=== PATIENT | male | born 1975 | race Caucasian/White ===

== ENCOUNTER 2023-10-01 17:38 | Emergency (ER) | payer OTHER, BC ==
[2023-10-02 02:11] VITALS: BP 145/104
[2023-10-02 02:13] VITALS: PULSE 97
== END 2023-10-01 19:27 | disposition home or self-care (01) ==
LOC: JD.ED 17:38
DX: R07.81 Pleurodynia (principal)
CPT/HCPCS: 71101-26-RT; 71101-RT; 99282; 99283

== ENCOUNTER 2023-10-14 09:17 | Emergency (ER) | payer OTHER, BC ==
[2023-10-14] MEDS ORDERED: Succinylcholine 200 MG/10 ML MDV IVPUSH ONE (09:27)
[2023-10-14] MEDS ORDERED: Etomidate 2 MG/ML 20 ML SDV IVPUSH ONE (09:27)
[2023-10-14 09:31] LABS: HEMATOCRIT 44.7 % (42.0-52.0); HEMOGLOBIN 15.6 gm/dl (14.0-18.0); MEAN CORPUSCULAR HEMOGLOBIN 30.3 pg (28.0-32.0); MEAN CORPUSCULAR HGB CONC 34.9 g/dl (32.0-36.0); MEAN CORPUSCULAR VOLUME 86.8 fl (83.0-99.0); MEAN PLATELET VOLUME 10.2 fl (9.4-12.4); PLATELET COUNT,PLT 168 K/mm3 (150-400); RED BLOOD CELL COUNT 5.15 M/mm3 (4.52-5.90); WHITE BLOOD CELL COUNT,WBC 7.38 K/mm3 (3.9-11.3)
[2023-10-14] MEDS ORDERED: Diphtheria,Pertussis(Acell),Tetanus Vaccine 0.5 ML Syringe IM ONE (09:36)
[2023-10-14] MEDS ORDERED: Sodium Chloride 0.9% 10 ML Syringe FLUSH ONE (09:44)
[2023-10-14] MEDS ORDERED: Iopamidol 612 MG/ML 100 ML Bottle IVPUSH ONE (09:44)
[2023-10-14] MEDS ORDERED: Iopamidol 612 MG/ML 30 ML SDV IVPUSH ONE (09:44)
[2023-10-14 09:45] LABS: INR 0.96; PROTHROMBIN TIME 10.3 SECONDS (9.7-12.0)
[2023-10-14] MEDS ORDERED: Sodium Chloride 0.9% 100 ML IV SCH (09:45)
[2023-10-14 09:46] LABS: PTT,PARTIAL THROMBOPLSTIN TIME 24.6 SECONDS (21.7-31.4)
[2023-10-14] MEDS: propofoL 100 ML IV SCH ×3 (09:47→14:17)
[2023-10-14] MEDS ORDERED: Sodium Chloride 0.9% 1,000 ML IV ONE (09:49)
[2023-10-14 09:55] LABS: APPEARANCE,URINE CLEAR (Clear); BILIRUBIN,URINE NEGATIVE (Negative); COLOR,URINE YELLOW (Yellow); GLUCOSE,URINE NEGATIVE (Negative); KETONES,URINE NEGATIVE (Negative); LEUKOCYTE ESTERASE,URINE NEGATIVE (Negative); NITRITE,URINE NEGATIVE (Negative); OCCULT BLOOD,URINE TRACE-INTACT (Negative); PH,URINE 5.5 (5.0-8.0); PROTEIN,URINE NEGATIVE (Negative); UROBILINOGEN,URINE 0.2 (0.2-1.0)
[2023-10-14 09:58] LABS: A/G RATIO 1.2 (1-2); ALANINE AMINOTRANSFERASE,ALT 64 U/L (16-63); ALBUMIN 3.9 g/dl (3.4-5.0); ALKALINE PHOSPHATASE 121 U/L (46-116); AMYLASE 47 U/L (25-115); ANION GAP 15.5 (5-15); ASPARTATE AMNIOTRANSFERASE,AST 30 U/L (15-37); BILIRUBIN TOTAL 0.4 mg/dL (0.2-1.0); BLOOD UREA NITROGEN,BUN 10 mg/dL (7-18); BUN/CREATININE RATIO 8.3 (14-18); CALCIUM 8.6 mg/dL (8.5-10.1); CARBON DIOXIDE,CO2 23 mEq/L (21-32); CHLORIDE,CL 103 mEq/L (98-107); CREATININE 1.2 mg/dL (0.7-1.3); ESTIMATED GFR 75 mL/min (>60); GLUCOSE RANDOM 236 mg/dL (70-99); POTASSIUM,K 4.5 mEq/L (3.5-5.1); PROTEIN TOTAL,TP 7.1 g/dl (6.4-8.2); SODIUM,NA 137 mEq/L (136-145)
[2023-10-14 10:03] LABS: BARBITURATE SCREEN,URINE NEGATIVE (CUTOFF=200); BENZODIAZEPINES SCREEN,URINE NEGATIVE (CUTOFF=150); BUPRENORPHINE SCREEN,URINE NEGATIVE (CUTOFF=10); METHADONE SCREEN, URINE NEGATIVE (CUT0FF=200); METHAMPHETAMINES SCREEN, URINE NEGATIVE (CUTOFF=500); OXYCODONE SCREEN,URINE NEGATIVE (CUT0FF=100); THC SCREEN,URINE 20 NG/ML NEGATIVE (CUTOFF=50)
[2023-10-14 10:25] VITALS: PULSE 130
[2023-10-14] MEDS: Midazolam 50 MG in Sodium Chloride 0.9% 40 ML IV SCH ×2 (10:29→14:26)
[2023-10-14] MEDS ORDERED: fentaNYL 2,500 MCG in Sodium Chloride 0.9% 200 ML IV SCH (10:30)
[2023-10-14 10:56] LABS: AMPHETAMINES SCREEN, URINE NEGATIVE (CUTOFF=500)
[2023-10-14 11:02] LABS: BAND PERCENT MAN 0 % (0-10); BASOPHILS PERCENT MAN 0 (0.2-1.2); EOSINOPHILS PERCENT MAN 1 % (0.8-7.0); LYMPHOCYTES % ATYPICAL MANUAL 0 %; LYMPHOCYTES PERCENT MAN 13 % (20-40); MONOCYTES PERCENT MAN 1 % (2-10)
[2023-10-14 11:03] LABS: PLATELET COUNT ESTIMATE ADEQUATE
[2023-10-14] MEDS ORDERED: Lactated Ringers 1,000 ML IV SCH (11:29)
[2023-10-14] MEDS ORDERED: propofoL 100 ML ONE (11:31)
[2023-10-14 11:50] LABS: O2 SATURATION ARTERIAL 98.7 % (96.0-97.0); PCO2 ARTERIAL 42.7 mmHg (35.0-45.0)
[2023-10-14 11:51] LABS: BICARBONATE,ARTERIAL 22.2 meq/L (22.0-26.0)
[2023-10-14 17:05] VITALS: BP 128/102
== END 2023-10-14 14:55 ==
LOC: JD.ED 09:17
DX: T20.10XA Burn of first degree of head, face, and neck, unspecified site, initial encounter (principal); T31.0 Burns involving less than 10% of body surface; I10 Essential (primary) hypertension; Z23 Encounter for immunization; X08.8XXA Exposure to other specified smoke, fire and flames, initial encounter
CPT/HCPCS: 31500; 36415; 36600; 43752; 51702; 70450; 71045; 71260; 72125; 72128; 72131; 74177; 80053; 80306; 80307; 81003; 82150; 82803; 83605; 85007; 85027; 85610; 85730; 86850; 86900; 86901; 90471; 90715; 96365; 96366; 99285; J0330; J2250; J2704; J3010; J3490; J7030; J7050; J7120; Q9967

== ENCOUNTER 2024-08-13 15:15 | Inpatient (IN) | payer SELFPAY ==
[2024-08-13] MEDS: Lactated Ringers 1,000 ML IV SCH ×2 (16:13→17:49)
[2024-08-13 16:15] LABS: BASOPHILS PERCENT AUTO 0.2 % (0.0-1.0); EOSINOPHILS ABSOLUTE AUTO 0.1 K/mm3 (0.0-0.4); EOSINOPHILS PERCENT AUTO 0.8 % (0.0-6.0); HEMATOCRIT 46.5 % (42.0-52.0); HEMOGLOBIN 16.2 gm/dl (14.0-18.0); IMMATURE GRAN PERCENT AUTO 0.6 % (0.0-0.4); LYMPHOCYTES ABSOLUTE AUTO 1.8 K/mm3 (1.0-4.8); LYMPHOCYTES PERCENT AUTO 11.4 % (24.0-44.0); MEAN CORPUSCULAR HEMOGLOBIN 29.1 pg (28.0-32.0); MEAN CORPUSCULAR HGB CONC 34.8 g/dl (32.0-36.0); MEAN CORPUSCULAR VOLUME 83.5 fl (83.0-99.0); MEAN PLATELET VOLUME 11.2 fl (9.4-12.4); MONOCYTES ABSOLUTE AUTO 0.9 K/mm3 (0.0-0.8); MONOCYTES PERCENT AUTO 5.5 % (0.0-8.0); NEUTROPHILS PERCENT AUTO 81.5 % (41.0-71.0); PLATELET COUNT,PLT 281 K/mm3 (150-400); RED BLOOD CELL COUNT 5.57 M/mm3 (4.52-5.90)
[2024-08-13 16:45] LABS: A/G RATIO 1.2 (1-2); ALANINE AMINOTRANSFERASE,ALT 37 U/L (16-63); ALBUMIN 4.4 g/dl (3.4-5.0); ALKALINE PHOSPHATASE 147 U/L (46-116); ANION GAP 23.7 (5-15); ASPARTATE AMNIOTRANSFERASE,AST 13 U/L (15-37); BLOOD UREA NITROGEN,BUN 19 mg/dL (7-18); BUN/CREATININE RATIO 15.8 (14-18); C-REACTIVE PROTEIN 0.05 mg/dL (<0.30); CALCIUM 9.6 mg/dL (8.5-10.1); CARBON DIOXIDE,CO2 18 mEq/L (21-32); CHLORIDE,CL 86 mEq/L (98-107); CREATININE 1.2 mg/dL (0.7-1.3); EST CRCL DRUG DOSING (CG) 72.04 mL/min; ESTIMATED GFR 74 mL/min (>60); LIPASE 59 U/L (16-77); MAGNESIUM 2.2 mg/dL (1.8-2.4); PHOSPHORUS 3.1 mg/dL (2.6-4.7); POTASSIUM,K 4.7 mEq/L (3.5-5.1); SODIUM,NA 123 mEq/L (136-145)
[2024-08-13 16:52] LABS: GLUCOSE RANDOM 539 mg/dL (70-99); TROPONIN I HIGH SENSITIVITY < 4 pg/mL (<=76)
[2024-08-13 17:03] LABS: LACTIC ACID 1.1 mmol/L (0.4-2.0)
[2024-08-13 17:06] LABS: HEMOGLOBIN A1C >14.0 %
[2024-08-13] MEDS ORDERED: Insulin Regular in 0.9 % NACL 100 ML IV SCH (17:30)
[2024-08-13 17:46] LABS: APPEARANCE,URINE CLEAR (Clear); BILIRUBIN,URINE NEGATIVE (Negative); COLOR,URINE LIGHT YELLOW (Yellow); GLUCOSE,URINE 2+ (Negative); KETONES,URINE 4+ (Negative); LEUKOCYTE ESTERASE,URINE NEGATIVE (Negative); NITRITE,URINE NEGATIVE (Negative); OCCULT BLOOD,URINE NEGATIVE (Negative); PROTEIN,URINE TRACE (Negative); UROBILINOGEN,URINE 0.2 (0.2-1.0)
[2024-08-13 17:54] LABS: BASE EXCESS ARTERIAL -10.9 (-2-2.0); BICARBONATE,ARTERIAL 12.6 meq/L (22.0-26.0); O2 SATURATION ARTERIAL 97.7 % (96.0-97.0)
[2024-08-13 17:56] LABS: RBC,URINE 0-5 /hpf (0-5); SQUAMOUS EPITHELIAL CELLS,UR 0-5 /hpf (0-5); WBC,URINE 0-5 /hpf (0-5)
[2024-08-13 17:57] LABS: BACTERIA,URINE FEW /hpf (FEW); MUCUS,URINE FEW /hpf (FEW)
[2024-08-13 17:59] LABS: OSMOLALITY,SERUM 298 mosm/kg (280-300)
[2024-08-13] MEDS ORDERED: Polyethylene Glycol 3350 Powder 17 GM Packet PO PRN (18:22)
[2024-08-13] MEDS ORDERED: Acetaminophen 325 MG Tab PO PRN (18:22)
[2024-08-13] MEDS ORDERED: Melatonin 3 MG Tab PO PRN (18:22)
[2024-08-13] MEDS ORDERED: Ondansetron 4 MG/2 ML SDV IV PRN (18:22)
[2024-08-13] MEDS ORDERED: 50% Dextrose in Water 50 ML Syringe IVPUSH PRN (18:24)
[2024-08-13 18:46] LABS: SODIUM,URINE RANDOM 24 mEq/L (40-220)
[2024-08-13] MEDS: Insulin Lispro 100 Unit/ML 3 ML KwikPen SUBCUT ONE (18:46)
[2024-08-13] MEDS: Sodium Chloride 0.9% 1,000 ML IV SCH (18:52)
[2024-08-13 19:33] LABS: OSMOLALITY,URINE 678 mosm/kg (400-1100)
[2024-08-13 20:24] LABS: ANION GAP 18.1 (5-15); BUN/CREATININE RATIO 17.8 (14-18); CALCIUM 8.8 mg/dL (8.5-10.1); CREATININE 0.9 mg/dL (0.7-1.3); EST CRCL DRUG DOSING (CG) 96.06 mL/min; POTASSIUM,K 4.1 mEq/L (3.5-5.1)
[2024-08-13] MEDS: Insulin Lispro 100 Unit/ML 3 ML KwikPen SUBCUT SCH (20:44)
[2024-08-14 00:38] LABS: ANION GAP 14.8 (5-15); BUN/CREATININE RATIO 18.9 (14-18); CALCIUM 8.1 mg/dL (8.5-10.1); CREATININE 0.9 mg/dL (0.7-1.3); EST CRCL DRUG DOSING (CG) 99.29 mL/min; POTASSIUM,K 3.8 mEq/L (3.5-5.1)
[2024-08-14 05:35] LABS: BASOPHILS PERCENT AUTO 0.2 % (0.0-1.0); EOSINOPHILS ABSOLUTE AUTO 0.3 K/mm3 (0.0-0.4); EOSINOPHILS PERCENT AUTO 3.1 % (0.0-6.0); HEMATOCRIT 39.5 % (42.0-52.0); IMMATURE GRAN ABSOLUTE AUTO 0.07 K/mm3 (0.00-0.05); IMMATURE GRAN PERCENT AUTO 0.7 % (0.0-0.4); LYMPHOCYTES ABSOLUTE AUTO 2.1 K/mm3 (1.0-4.8); LYMPHOCYTES PERCENT AUTO 19.9 % (24.0-44.0); MEAN CORPUSCULAR HEMOGLOBIN 28.9 pg (28.0-32.0); MEAN CORPUSCULAR HGB CONC 33.9 g/dl (32.0-36.0); MEAN CORPUSCULAR VOLUME 85.1 fl (83.0-99.0); MONOCYTES ABSOLUTE AUTO 0.8 K/mm3 (0.0-0.8); MONOCYTES PERCENT AUTO 8.1 % (0.0-8.0); RED BLOOD CELL COUNT 4.64 M/mm3 (4.52-5.90)
[2024-08-14 05:48] LABS: HEMOGLOBIN 13.4 gm/dl (14.0-18.0)
[2024-08-14 05:49] LABS: PLATELET COUNT,PLT 190 K/mm3 (150-400)
[2024-08-14 05:50] LABS: ANION GAP 14.4 (5-15); EST CRCL DRUG DOSING (CG) 89.36 mL/min; POTASSIUM,K 4.4 mEq/L (3.5-5.1)
[2024-08-14] MEDS: Lisinopril 20 MG Tab PO SCH (09:24)
[2024-08-14] MEDS: Enoxaparin 40 MG/0.4 ML Syringe SUBCUT SCH (09:26)
[2024-08-14] MEDS: Insulin Glargine,Human Rec. Analog 100 Units/ML 3 ML Pen SUBCUT SCH (09:26)
[2024-08-14] MEDS: Insulin Glargine,Human Rec. Analog 100 Units/ML 3 ML Pen SUBCUT ONE (12:40)
[2024-08-14 16:54] VITALS: BP 117/76; PULSE 90
[2024-08-14] MEDS ORDERED: Rosuvastatin 10 MG Tab PO SCH (21:00)
[2024-08-14] MEDS ORDERED: Montelukast 10 MG Tab PO SCH (21:00)
== END 2024-08-14 17:23 | disposition home or self-care (01) | DRG 640 ==
LOC: JD.ED 15:15 → JD.MS 18:22
PROVIDERS: ADMIT Family Medicine; ATTEND Family Medicine
DX: E87.1 Hypo-osmolality and hyponatremia (principal); E43 Unspecified severe protein-calorie malnutrition; M10.9 Gout, unspecified; E86.0 Dehydration; E87.8 Other disorders of electrolyte and fluid balance, not elsewhere classified; E11.65 Type 2 diabetes mellitus with hyperglycemia; D72.829 Elevated white blood cell count, unspecified; N18.1 Chronic kidney disease, stage 1; I12.9 Hypertensive chronic kidney disease with stage 1 through stage 4 chronic kidney disease, or unspecified chronic kidney disease; E11.22 Type 2 diabetes mellitus with diabetic chronic kidney disease; Z79.02 Long term (current) use of antithrombotics/antiplatelets; Z79.899 Other long term (current) drug therapy; Z68.24 Body mass index [BMI] 24.0-24.9, adult; Z79.84 Long term (current) use of oral hypoglycemic drugs; Z79.4 Long term (current) use of insulin; Z79.51 Long term (current) use of inhaled steroids
CPT/HCPCS: 36415; 36600; 71045; 71045-26; 80048; 80053; 80307; 81001; 82010; 82803; 82947; 83036; 83605; 83690; 83735; 83880; 83930; 83935; 84100; 84300; 84484; 85025; 86140; 93005; 93010; 96360; 96361; 99284; 99284-25; A9270-GY; J1650; J1815; J1815-GY; J7030; J7120

== ENCOUNTER 2025-05-21 22:21 | Emergency (ER) | payer MEDICAID ==
[2025-05-21 23:05] VITALS: BP 144/99; PULSE 97
[2025-05-22] MEDS ORDERED: Dexamethasone 0.1% Ophth Soln 5 ML Bottle EYEBOTH SCH (00:30)
[2025-05-22] MEDS: Ketorolac 0.5% Ophth Soln 5 ML Bottle EYEBOTH ONE (02:05)
[2025-05-22] MEDS: Acetaminophen/HYDROcodone 325-5 MG Tab PO ONE (02:06)
== END 2025-05-22 03:19 | disposition home or self-care (01) ==
LOC: JD.ED 22:21
DX: H10.33 Unspecified acute conjunctivitis, bilateral (principal); I10 Essential (primary) hypertension; J45.909 Unspecified asthma, uncomplicated; E11.9 Type 2 diabetes mellitus without complications; Z79.899 Other long term (current) drug therapy; Z79.84 Long term (current) use of oral hypoglycemic drugs
CPT/HCPCS: 99283; A9270; J7512; Q0163; 99284; J3490